=== PATIENT | male | born 1980 | race Caucasian/White ===

== ENCOUNTER 2017-08-02 09:14 | Emergency (ER) | payer OTHER, MEDICAID, SELFPAY ==
[2017-08-02 09:22] VITALS: BP 126/75; PULSE 64; RESP 13; TEMP 36.5; O2SAT 96
--- NOTE | 2017-08-02 09:26 | ED.ALLEREA ---
HPI - Allergic Reaction General Chief complaint: Allergic Reaction Stated complaint: REACTION TO MEDICATION, DIZZY, TIGHTNESS IN CHEST Time Seen by Provider: 08/02/17 09:24 Source: patient Mode of arrival: ambulatory Limitations: no limitations History of Present Illness HPI narrative: Patient presents to the emergency department this morning with a chief complaint of a sudden onset of allergic type symptoms after taking some ibuprofen and phenylephrine for typical cough and cold symptoms. He has had some runny nose and nasal congestion as well as sneezing for the past few days. He was at work and encouraged to take some ibuprofen, he accidentally took 1200 mg, thinking the tablets were 100 mg as opposed to the 200 mg they were. Additionally he took 10 mg of phenylephrine. He has never taken phenylephrine before. He complains of numbness and tingling around his mouth and in his hands. He feels wheezy and lightheaded MD complaint: allergic reaction Onset (ago): minute(s) Exposure: medication Symptoms: difficulty breathing, dizziness and nausea Severity: moderate Treatment prior to arrival: none Previous Allergic Reaction History: none Related Data Home Medications Medication Instructions Recorded Confirmed lorazepam 1 tab PO HSP PRN 08/02/17 08/02/17 methocarbamol 750 mg PO QIDP PRN 08/02/17 08/02/17 Previous Rx's Medication Instructions Recorded valacyclovir 1,000 mg PO Q DAY #5 tab 05/04/17 ibuprofen 800 mg PO TIDP PRN #45 tab 06/21/17 prednisone 20 mg PO DAILY #5 tab 08/02/17 Allergies Allergy/AdvReac Type Severity Reaction Status Date / Time aspirin [ASPIRIN] Allergy Severe Unverified 06/30/17 12:31 Review of Systems Review of Systems All systems reviewed & are unremarkable except as noted in HPI and below Constitutional Denies chills, Denies fever(s), Denies lethargy and Denies weakness Eyes Denies change in vision, Denies eye discharge, Denies irritation and Denies loss of vision ENT Ears, Nose, Mouth, and Throat: Reports nasal congestion, Reports nasal discharge and Reports throat swelling Cardiovascular Denies chest pain, Denies irregular heart rhythm, Denies lightheadedness, Denies palpitations and Denies orthopnea Respiratory Reports wheezing Gastrointestinal Gastrointestinal: Denies abdominal pain, Denies change in bowel habits, Denies diarrhea, Denies nausea and Denies vomiting Musculoskeletal Denies back pain, Denies muscle weakness, Denies numbness and Denies tingling Integumentary/Breasts Denies pruritus, Denies erythema, Denies rash and Denies wounds Neurologic Denies loss of vision, Denies numbness, Denies tingling and Denies weakness Endocrine Denies palpitations Hematologic/Lymphatic Denies easy bruising Allergic/Immunologic Reports throat swelling and Reports wheezing Exam Narrative Exam Narrative: 37-year-old normally healthy male in moderate distress, obviously anxious Const General: cooperative, healthy appearing, well developed, in distress and anxious Nutritional Appearance: well nourished Orientation: alert, awake, oriented x3 and not confused HENKS Head: normocephalic and atraumatic Ears: external ears normal and TM's normal bilaterally Nose: external nose normal and nasal discharge Face and sinus: sinuses nontender, face symmetric, no sinus tenderness and No dry mucous membranes Mouth: oral mucosae normal and moist mucous membranes Teeth and gingiva: dentition normal Throat: tonsils normal and uvula midline Eyes General: appearance normal, both eyes and all related structures Eyelids: eyelids normal Conjunctivae: conjunctivae normal Sclera: sclerae normal Pupils: PERRL EOM: EOM intact bilaterally Neck Neck: normal visual inspection, trachea midline, No lymphadenopathy, No midline deformity and No JVD Lymphatic: No lymphedema Resp Effort & Inspection: able to speak in complete sentences, abnormal respiratory pattern, no respiratory distress and no use of accessory muscles Auscultation: clear to auscultation bilaterally, no rales, no rhonchi and no wheezes Other: Patient is a bit anxious and is breathing rapid and shallow, verbal instructions to slow and even his breathing Cardio Rate: regular rate Rhythm: regular rhythm Heart Sounds: no click, no gallops, no murmurs and no rubs Pulses: normal peripheral pulses GI Inspection: non-distended Palpation: soft, no hepatosplenomegaly, No guarding, No pulsatile mass and No tender Auscultation: normal bowel sounds Back/Spine/Pelvis Back: No CVA tenderness Cervical Spine: cervical ROM normal and No pain with cervical ROM Thoracic/Lumbar Spine: thoracic and lumbar spine normal to inspection Skin General: no rashes or lesions noted, No jaundice and No petechiae Neuro General: alert, oriented x3, gait normal and no focal motor deficits Motor: strength 5/5 throughout Sensory Exam: no sensory deficits noted Extrem General: full ROM, no clubbing, cyanosis or edema, no pedal edema and no calf tenderness Psych Appearance: well kempt Mental Status: mental status grossly normal Attitude: cooperative Thought Content: normal and suicidality Judgment: judgment good MDM - Allergic Reaction Differential Diagnosis Differential diagnosis: Likely anaphylaxis, allergic reaction and adverse reaction to drug Lab Data Attestation: I reviewed the patient's lab results. Result diagrams: 08/02/17 09:43 08/02/17 09:43 Lab Results 08/02/17 08/02/17 Range/Units 09:43 09:43 WBC 7.9 (4.5-11.0) X10^3/uL RBC 4.48 L (4.5-5.9) X10^6/uL Hgb 14.3 (13.5-17.5) g/dL Hct 41.6 (41-53) % MCV 92.9 (80-100) fL MCH 31.9 (26-34) PG MCHC 34.3 (30-36) % RDW 14.2 (11.6-14.8) % Plt Count 188 (150-400) X10^3/uL Neut % (Auto) 56.8 (50-75) % Lymph % (Auto) 26.5 (25-40) % [place] % (Auto) 9.3 (3-14) % Eos % (Auto) 6.6 H (2-4) % Baso % (Auto) 0.8 (0-2) % Neut # (Auto) 4500 (0991-4095) /uL Sodium 139 (137-145) mmol/L Potassium 4.3 (3.4-5.1) mmol/L Chloride 105.0 (98-107) mmol/L Carbon Dioxide 22.0 (22-32) mmol/L BUN 26.0 H (9-20) mg/dL Creatinine 0.70 (0.66-1.25) mg/dL Estimated GFR > 60.0 (>60) mL/min BUN/Creatinine Ratio 37.1 H (6-22) Glucose 124 H (70-100) mg/dL Calcium 9.2 (8.4-10.2) mg/dL Troponin I < 0.012 (0.01-0.034) ng/mL Imaging Data Chest x-ray: Attestation: I personally reviewed and interpreted this imaging study as follows: My impression: NAP Radiologist's impression: PROCEDURE: XR CHEST 1V INDICATIONS: chest pain TECHNIQUE: One view of the chest was acquired. COMPARISON: 01/03/2016 FINDINGS: Surgical changes and devices: None. Lungs and pleura: No pleural effusions or pneumothorax. Lungs are clear. Mediastinum: Mediastinal contours appear normal. Heart size is normal. Bones and chest wall: No suspicious bony lesions. Lower thoracic degenerative disc disease. Overlying soft tissues appear unremarkable. IMPRESSION: No acute cardiopulmonary abnormality Dictated by: Fidencio Mcginnis M.D. on 08/02/2017 at 9:53 ECG Data Attestation: I personally reviewed and interpreted this ECG as follows: Prior ECG tracings: not available for review Interpretation: NSR, rate 71. No ectopy. No ST / T wave abnormalities Course Orders Ordered: ED Orders 08/02/17 09:27 XR chest 1V Stat 08/02/17 09:42 EKG-12 Lead Stat 08/02/17 09:43 Basic Metabolic Panel Urgent Complete Blood Count AUTO DIFF Stat Troponin I Urgent Discontinued Medications Diphenhydramine HCl (Benadryl) 25 mg IV NOW ONE Stop: 08/02/17 09:27 Last Admin: 08/02/17 09:57 Dose: 25 mg Sodium Chloride (Normal Saline 0.9%) 1,000 mls @ 1,000 mls/hr IV BOLUS ONE Stop: 08/02/17 10:25 Last Infusion: 08/02/17 11:52 Dose: 0 mls/hr Admin: 08/02/17 09:57 Dose: 1,000 mls/hr Famotidine (Pepcid) 20 mg in 50 mls @ 200 mls/hr IV NOW ONE Stop: 08/02/17 09:40 Last Infusion: 08/02/17 10:30 Dose: 0 mls/hr Admin: 08/02/17 09:57 Dose: 200 mls/hr Methylprednisolone (Solu-Medrol 125 Mg Vial) 125 mg IV NOW ONE Stop: 08/02/17 09:27 Last Admin: 08/02/17 09:56 Dose: 125 mg Reevaluation(s) Reevaluation #1: Patient feeling much better in now asymptomatic. Requesting discharge Time: 11:59 Last Vital Signs Temp 97.7 F 08/02/17 09:22 Pulse 55 L 08/02/17 11:41 Resp 15 08/02/17 11:41 BP 118/62 08/02/17 11:41 Pulse Ox 95 08/02/17 11:41 Discharge Plan Departure Patient Disposition: Home, Self-Care Clinical Impression: Allergic reaction caused by a drug Instructions: DI for General Allergic Reactions Prescriptions: New prednisone 20 mg tablet 20 mg PO DAILY Qty: 5 RF: 0 No Action valacyclovir 1,000 MG tablet 1,000 mg PO Q DAY Qty: 5 RF: 5 ibuprofen 800 MG tablet 800 mg PO TIDP PRNQty: 45 RF: 0 methocarbamol 750 MG tablet 750 mg PO QIDP PRN (Reason: Muscle Spasm) RF: 0 lorazepam 1 MG tablet 1 tab PO HSP PRN (Reason: Insomnia) RF: 0
[2017-08-02 09:54] LABS: Add Manual Diff / Slide Review NO; Basophils Percent Auto 0.8 % (0-2); Eosinophils Percent Auto 6.6 % (2-4); Hematocrit 41.6 % (41-53); Hemoglobin 14.3 g/dL (13.5-17.5); Lymphocytes Percent Auto 26.5 % (25-40); Mean Corpuscular HGB Conc 34.3 % (30-36); Mean Corpuscular Hemoglobin 31.9 PG (26-34); Mean Corpuscular Volume 92.9 fL (80-100); Monocytes Percent Auto 9.3 % (3-14); Neutrophils Absolute Auto 4500 /uL (3000-5900); Neutrophils Percent Auto 56.8 % (50-75); Platelet Count 188 X10^3/uL (150-400); Red Blood Cell Count 4.48 X10^6/uL (4.5-5.9); Red Cell Distribution Width 14.2 % (11.6-14.8); White Blood Cell Count 7.9 X10^3/uL (4.5-11.0)
[2017-08-02] MEDS: methylPREDNISolone 125 MG/2 ML VIAL IV (09:56)
[2017-08-02] MEDS: FAMOTIDINE 20 MG/50 ML PIGGYBACK 200 MG IV (09:57)
[2017-08-02] MEDS: SODIUM CHLORIDE 0.9% 1,000 ML 1000 ML IV (09:57)
[2017-08-02] MEDS: diphenhydrAMINE 50 MG/ML VIAL 25 MG IV (09:57)
[2017-08-02 10:07] LABS: BUN Creatinine Ratio 37.1 (6-22); Calcium 9.2 mg/dL (8.4-10.2); Estimated Glomerular Filt Rate > 60.0 mL/min (>60); Glucose 124 mg/dL (70-100); HEMOLYSIS 50 (0-50); Potassium 4.3 mmol/L (3.4-5.1); Sodium 139 mmol/L (137-145)
[2017-08-02 10:19] LABS: Troponin I < 0.012 ng/mL (0.01-0.034)
[2017-08-02 11:41] VITALS: BP 118/62; PULSE 55; RESP 15; O2SAT 95
[2017-08-02 12:40] VITALS: BP 130/68; PULSE 88; O2SAT 100
== END 2017-08-02 13:03 | disposition home or self-care (01) ==
PROVIDERS: Emergency Provider Emergency Medicine; Family Provider Family Medicine; PCP Family Medicine
DX: T78.40XA Allergy, unspecified, initial encounter (principal)
CPT/HCPCS: 36591; 71045; 80048; 84484; 85025; 93005; 96361; 96374; 96375; 99283; 99285; J1200; J2930

== ENCOUNTER 2017-09-12 12:03 | Emergency (ER) | payer OTHER, MEDICAID, SELFPAY ==
[2017-09-12 12:21] VITALS: BP 118/76; PULSE 88; RESP 18; TEMP 36.4; O2SAT 97; BMI 32.8
[2017-09-12 14:36] VITALS: BP 115/66; PULSE 61; RESP 16; TEMP 36.7; O2SAT 99
--- NOTE | 2017-09-12 14:42 | ED_ITS ---
HPI - Back Pain/Injury <Briana El PA-C - Last Filed: 09/12/17 21:52> General Chief Complaint: Back Pain/Injury Stated Complaint: SEVERE LOWER BACK PAIN Time Seen by Provider: 09/12/17 13:59 Source: patient Mode of arrival: ambulatory Limitations: no limitations History of Present Illness HPI Narrative: This 37-year-old male who has a history of chronic back pain intermittently and spinal stenosis with sciatica comes in due to 4 day history of left-sided low back pain. 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 He states he did clean out a kiddie pool prior to onset of symptoms but does not remember any injury. He also states that he took a performance enhancing herbal supplement packet just prior to onset of symptoms. He states that he is starting to notice a little bit of pain radiating into the leg, but he denies any lower extremity weakness or paresthesia. He denies any bowel or bladder changes. He denies any fever, rash. He is on 800 mg of ibuprofen regularly which he ran out of 6 days ago, and also ran out of his Robaxin yesterday. He states that usually the 2 agents together help but the Robaxin alone did not seem to help him much last night. Related Data Previous Rx's Medication Instructions Recorded prednisone 20 mg PO DAILY #5 tab 08/02/17 valacyclovir 1 gram tablet 1,000 mg PO Q DAY #5 tab 08/02/17 lorazepam 1 mg tablet 1 mg PO HSP PRN #30 tab 08/05/17 methocarbamol 750 mg tablet 750 mg PO QIDP PRN #80 tab 08/05/17 meloxicam [Mobic] 15 mg PO DAILY #7 tab 09/12/17 methocarbamol [Robaxin-] 750 mg PO TID PRN #10 tab 09/12/17 Allergies Allergy/AdvReac Type Severity Reaction Status Date / Time aspirin [ASPIRIN] Allergy Severe Unverified 06/30/17 12:31 Exam <Briana El PA-C - Last Filed: 09/12/17 21:52> Narrative Exam Narrative: GENERAL APPEARANCE: Patient sleeping flat on his back, in no distress PULMONARY: Lungs clear to auscultation bilaterally CV: Regular rhythm regular without murmur, normal S1 and S2, no S3 or S4 MUSCULOSKELETAL: No point tenderness over the lumbar spine. No point tenderness over the SI joints. No tenderness over the thoracolumbar musculature or flanks. Lower extremity strength 5/5 bilateral hip flexors, knee extensors, foot plantar flexion. Negative modified straight leg raise. He has normal trunk extension, reduced flexion to about 30? secondary to tenderness, and moderately reduced rotation secondary to tenderness, normal lateral bend NEUROLOGIC: Bilateral patellar and Achilles DTRs 2+ with distraction DERMATOLOGIC: No exanthem Initial Vital Signs Initial Vital Signs: Vital Signs Temperature 97.5 F L 09/12/17 12:21 Pulse Rate 88 09/12/17 12:21 Respiratory Rate 18 09/12/17 12:21 Blood Pressure 118/76 09/12/17 12:21 Pulse Oximetry 97 09/12/17 12:21 <Pillo Pérez DO - Last Filed: 09/14/17 07:17> Initial Vital Signs Initial Vital Signs: Vital Signs Temperature 97.5 F L 09/12/17 12:21 Pulse Rate 88 09/12/17 12:21 Respiratory Rate 18 09/12/17 12:21 Blood Pressure 118/76 09/12/17 12:21 Pulse Oximetry 97 09/12/17 12:21 Course <TERE Gomes Last Filed: 09/12/17 21:52> Vital Signs - 8 hr 09/12/17 14:36 Temperature 98.0 F Pulse Rate 61 Respiratory Rate 16 Blood Pressure [Left Arm] 115/66 Pulse Oximetry 99 <DO Ammy Ocasio Last Filed: 09/14/17 07:17> Vital Signs - 8 hr 09/12/17 14:36 Temperature 98.0 F Pulse Rate 61 Respiratory Rate 16 Blood Pressure [Left Arm] 115/66 Pulse Oximetry 99 MDM - Back Pain/Injury <TERE Gomes Last Filed: 09/12/17 21:52> Lab Data Attestation: I reviewed the patient's lab results. Urinalysis 1+ urobilinogen, otherwise WNL Discharge Plan Departure Patient Disposition: Home, Self-Care Clinical Impression: Lumbar strain, Muscle spasm Discharge Date/Time: 09/12/17 14:58 Interventions: ED Discharge Assessment Last Done: 09/12/17 14:57 Instructions: Managing Chronic Low Back Pain, DI for Low Back Pain Activity Restrictions/Additional Instructions: Stop taking your ibuprofen and try the new anti-inflammatory meloxicam once daily that I sent a prescription in for. Restart your methocarbamol. Call your PCP in the morning to schedule follow-up. I think you have strained your lumbar area and have spasms on top of your previous back pain and sciatica. 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 You should see your PCP in the next day or 2 before returning to work to determine your level of improvement or whether you need any work modifications. Prescriptions: New meloxicam [Mobic] 15 mg tablet 15 mg PO DAILY Qty: 7 RF: 0 methocarbamol [Robaxin-750] 750 mg tablet 750 mg PO TID PRN (Reason: muscle spasm) Qty: 10 RF: 0 Discontinued ibuprofen 800 mg tablet 800 mg PO TIDP PRN (Reason: pain) Qty: 45 RF: 3 No Action valacyclovir 1 gram tablet 1,000 mg PO Q DAY Qty: 5 RF: 5 methocarbamol 750 mg tablet 750 mg PO QIDP PRN (Reason: Muscle Spasm) Qty: 80 RF: 3 lorazepam 1 mg tablet 1 mg PO HSP PRN (Reason: Insomnia) Qty: 30 RF: 0 prednisone 20 mg tablet 20 mg PO DAILY Qty: 5 RF: 0 <Pillo Pérez DO - Last Filed: 09/14/17 07:17> Fannie ED Attending Felipa Attestation: I was available for consultation during this patient's emergency department encounter
== END 2017-09-12 14:58 | disposition home or self-care (01) ==
PROVIDERS: Emergency Provider Internal Medicine; Family Provider Family Medicine; PCP Family Medicine
DX: S39.012A Strain of muscle, fascia and tendon of lower back, initial encounter (principal); T73.3XXA Exhaustion due to excessive exertion, initial encounter
CPT/HCPCS: 81003; 99282

== ENCOUNTER 2018-02-04 13:25 | Emergency (ER) | payer OTHER, MEDICAID, SELFPAY ==
[2018-02-04 13:35] VITALS: BP 113/74; PULSE 83; RESP 18; TEMP 36.8; O2SAT 97; BMI 34.2
--- NOTE | 2018-02-04 13:41 | DI.RAD.S_ITS ---
PROCEDURE: XR CHEST 2V INDICATIONS: Increasing Sob, cough TECHNIQUE: 2 views of the chest were acquired. COMPARISON: [facility], , XR CHEST 1V, 08/02/2017, 9:32. [facility], , CHEST 2 VIEW, 01/03/2016, 12:31. FINDINGS: Surgical changes and devices: None. Lungs and pleura: No pleural effusions or pneumothorax. Lungs are clear. Mediastinum: Mediastinal contours are normal. Heart size is normal. Bones and chest wall: No suspicious bony abnormalities. Soft tissues appear unremarkable. IMPRESSION: Normal for age, source of current symptoms is not seen. Dictated by: Cortes Dacosta M.D. on 02/04/2018 at 14:05 Approved by: Cortes Dacosta M.D. on 02/04/2018 at 14:05
--- NOTE | 2018-02-04 14:13 | ED.URI ---
HPI - URI/Sore Throat <LIEN Edwards - Last Filed: 02/04/18 22:08> General Chief Complaint: Upper Respiratory Symptoms Stated Complaint: pneumonia Time Seen by Provider: 02/04/18 14:13 Source: patient Mode of arrival: ambulatory Limitations: no limitations History of Present Illness HPI Narrative: 38-year-old male with history of chronic upper back pain and is an everyday smoker here for complaint of having a productive cough and nasal congestion over the last 3 days. He reports having a anterior chest wall pain and also pain into his shoulder area with cough. He denies any fevers. Positive p.o. intake. No chills. He denies any other concerns or complaints at this time. No shortness of breath MD Complaint: cough and nasal congestion Related Data Home Medications Medication Instructions Recorded Confirmed lorazepam 1 mg PO BEDTIME 02/04/18 02/04/18 methocarbamol 750 mg PO TID PRN 02/04/18 02/04/18 Previous Rx's Medication Instructions Recorded meloxicam [Mobic] 15 mg PO DAILY #7 tab 09/12/17 ibuprofen 800 mg tablet 800 mg PO TID PRN #45 tab 11/10/17 acyclovir 400 mg tablet 400 mg PO BID #60 tab 11/30/17 albuterol sulfate 2 puff INHALATION Q4-6H PRN #6.7 02/04/18 gram benzonatate 200 mg PO TID PRN #15 cap 02/04/18 Allergies Allergy/AdvReac Type Severity Reaction Status Date / Time aspirin [ASPIRIN] Allergy Severe Anaphylaxis Verified 02/04/18 13:40 Review of Systems <LIEN Edwards - Last Filed: 02/04/18 22:08> Constitutional Denies chills, Denies fever(s), Denies lethargy and Denies weakness Eyes Denies change in vision, Denies eye discharge, Denies irritation and Denies loss of vision ENT Ears, Nose, Mouth, and Throat: Reports nasal congestion and Denies throat swelling Cardiovascular Denies chest pain, Denies irregular heart rhythm, Denies lightheadedness, Denies palpitations and Denies orthopnea Respiratory Reports cough, Reports pain with cough and Denies wheezing Gastrointestinal Gastrointestinal: Denies abdominal pain, Denies change in bowel habits, Denies diarrhea, Denies nausea and Denies vomiting Genitourinary Denies hematuria, Denies flank pain, Denies urinary incontinence and Denies urinary urgency Musculoskeletal Denies back pain, Denies muscle weakness, Denies numbness and Denies tingling Integumentary/Breasts Denies pruritus, Denies erythema, Denies rash and Denies wounds Neurologic Denies confusion, Denies loss of vision, Denies numbness, Denies tingling and Denies weakness Psychiatric Denies anxiety, Denies confusion, Denies depression, Denies homicidal ideation and Denies suicidal ideation Endocrine Denies palpitations Hematologic/Lymphatic Denies easy bruising Allergic/Immunologic Denies urticaria, Denies throat swelling and Denies wheezing Exam <LIEN Edwards - Last Filed: 02/04/18 22:08> Initial Vital Signs Initial Vital Signs: Vital Signs Temperature 98.2 F 02/04/18 13:35 Pulse Rate 83 02/04/18 13:35 Respiratory Rate 18 02/04/18 13:35 Blood Pressure 113/74 02/04/18 13:35 Pulse Oximetry 97 02/04/18 13:35 Const General: cooperative and well developed Nutritional Appearance: well nourished Orientation: alert, awake, oriented x3 and not confused HENVT Mouth: oral mucosae normal and mucous membranes abnormal Eyes Conjunctivae: conjunctivae normal Sclera: sclerae normal Pupils: PERRL EOM: EOM intact bilaterally Resp Effort & Inspection: normal respiratory effort, able to speak in complete sentences, no respiratory distress and no use of accessory muscles Auscultation: clear to auscultation bilaterally, no rales, no rhonchi and wheezes inspiratory wheezes Cardio Rate: regular rate Rhythm: regular rhythm Heart Sounds: no click, no gallops, no murmurs and no rubs Skin General: no rashes or lesions noted, No jaundice and No petechiae Neuro General: alert, oriented x3, gait normal and no focal motor deficits Speech: speech normal <Briseida Cortez DO - Last Filed: 02/05/18 07:35> Initial Vital Signs Initial Vital Signs: Vital Signs Temperature 98.2 F 02/04/18 13:35 Pulse Rate 83 02/04/18 13:35 Respiratory Rate 18 02/04/18 13:35 Blood Pressure 113/74 02/04/18 13:35 Pulse Oximetry 97 02/04/18 13:35 Course <LIEN Edwards - Last Filed: 02/04/18 22:08> Orders Ordered: ED Orders 02/04/18 13:41 Chest [XR chest 2V] Stat Vital Signs - 8 hr 02/04/18 13:35 Temperature 98.2 F Pulse Rate 83 Respiratory Rate 18 Blood Pressure 113/74 Pulse Oximetry 97 <Briseida Cortez DO - Last Filed: 02/05/18 07:35> Orders Ordered: ED Orders 02/04/18 13:41 Chest [XR chest 2V] Stat Vital Signs - 8 hr 02/04/18 13:35 Temperature 98.2 F Pulse Rate 83 Respiratory Rate 18 Blood Pressure 113/74 Pulse Oximetry 97 MDM - URI/Sore Throat <LIEN Edwards - Last Filed: 02/04/18 22:08> Imaging Data Chest x-ray: Radiologist's impression: [address] [address] XRay Report Signed Patient: Santiago Fernandez RMR#: [id number] : 1980Acct:[id number] Age/Sex: 38 / MDate of Service: 02/04/18 Loc: ED Accession Number: [id number] Procedure: XR chest 2V Ordering Provider: Briseida Cortez D.O. PROCEDURE: XR CHEST 2V INDICATIONS: Increasing Sob, cough TECHNIQUE: 2 views of the chest were acquired. COMPARISON: [facility], , XR CHEST 1V, 08/02/2017, 9:32. [facility], , CHEST 2 VIEW, 01/03/2016, 12:31. FINDINGS: Surgical changes and devices: None. Lungs and pleura: No pleural effusions or pneumothorax. Lungs are clear. Mediastinum: Mediastinal contours are normal. Heart size is normal. Bones and chest wall: No suspicious bony abnormalities. Soft tissues appear unremarkable. IMPRESSION: Normal for age, source of current symptoms is not seen. Dictated by: Cortes Dacosta M.D. on 02/04/2018 at 14:05 Approved by: Cortes Dacosta M.D. on 02/04/2018 at 14:05 [facility] Narrative Medical decision making narrative: Chest x-ray was obtained was negative for any acute findings. Signs symptoms presents as viral infection. Slight wheezes heard on auscultation will prescribe albuterol inhaler to help with airway irritation either from viral infection or smoking or both. Tessalon Perles is prescribed to help with cough. Plenty of fluids and rest. [id number] Tylenol or Motrin as needed for any discomfort. Hot showers and saline irrigation and nasal passages to help with congestion. Follow up with primary care provider in the next few days for re-evaluation. If any worsening symptoms return to the emergency room. Discharge Plan Departure Patient Disposition: Home Clinical Impression: Upper respiratory infection, viral Discharge Date/Time: 02/04/18 14:56 Interventions: ED Discharge Assessment Last Done: 02/04/18 14:55 Instructions: DI for Viral Upper Respiratory Infection -- Adult Activity Restrictions/Additional Instructions: Chest x-ray was obtained today was negative for signs of pneumonia. Signs and symptoms presents as a viral upper respiratory infection. Slight wheezes was heard on auscultation of the lungs this is most likely due to irritation from the virus or from smoking. You are prescribed a albuterol inhaler to help with irritation to the airways use as directed. Tessalon Perles as prescribed to help with cough also use as directed. Plenty of rest and fluids. Hot showers and saline irrigation and nasal passages to help with congestion. Follow up with her primary care provider in the next few days for re-evaluation. For any worsening symptoms return to the emergency room Prescriptions: New benzonatate 200 mg capsule 200 mg PO TID PRN (Reason: cough) Qty: 15 RF: 0 albuterol sulfate 90 mcg/actuation HFA aerosol inhaler 2 puff INHALATION Q4-6H PRN (Reason: shortness of breath or wheezing) Qty: 6.7 RF: 0 No Action acyclovir 400 mg tablet 400 mg PO BID Qty: 60 RF: 11 ibuprofen 800 mg tablet 800 mg PO TID PRN (Reason: pain) Qty: 45 RF: 0 meloxicam [Mobic] 15 mg tablet 15 mg PO DAILY Qty: 7 RF: 0 methocarbamol 750 mg tablet 750 mg PO TID PRN (Reason: Spasms) RF: 0 lorazepam 1 mg tablet 1 mg PO BEDTIME RF: 0 Referrals: Larry Vivar MD [Primary Care Provider] - Stand Alone Forms: Work/School Restrictions <Briseida Cortez DO - Last Filed: 02/05/18 07:35> Cosign ED Attending Cosignature Attestation: I was immediately available in the department for consultation. Documentation has been reviewed. I agree with assessment and plan.
--- NOTE | 2018-02-05 18:25 | PC.NURSE ---
Patient Call Back: patient reports not feeling any better really... I have increased pressure in my sternum and I'm still congested. States he is taking his albuterol and tessalon pearls. Reminded the patient that he can return to the ED to be seen if needed. Patient states not in particular when asked if he had any questions about his discharge or anything we could do to improve his visit.
== END 2018-02-04 14:56 | disposition home or self-care (01) ==
PROVIDERS: Emergency Provider Nurse Practitioner Family; PCP Family Medicine
DX: J06.9 Acute upper respiratory infection, unspecified (principal)
CPT/HCPCS: 71046; 99282; 99283

== ENCOUNTER 2018-04-15 07:33 | Emergency (ER) | payer OTHER, MEDICAID, SELFPAY ==
[2018-04-15 07:45] VITALS: BP 126/80; PULSE 94; RESP 18; TEMP 35.8; O2SAT 96; BMI 36.0
--- NOTE | 2018-04-15 07:45 | ED.BACK ---
HPI - Back Pain/Injury General Chief Complaint: Back Pain/Injury Stated Complaint: back pain Time Seen by Provider: 04/15/18 07:39 Source: patient Mode of arrival: ambulatory Limitations: no limitations History of Present Illness HPI Narrative: 38-year-old male here for evaluation of lower back pain. Patient states that he has had a history of lower back pain. He is currently on Robaxin and Motrin. He has seen his primary care doctor. Was initially scheduled to have an MRI completed however due to insurance issues this has not yet been completed. He states that today he was at work. 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 No fevers. No bowel or bladder symptoms. He did take a Motrin this morning without any relief. Related Data Home Medications Medication Instructions Recorded Confirmed lorazepam 1 mg PO BEDTIME 02/04/18 02/04/18 methocarbamol 750 mg PO TID PRN 02/04/18 02/04/18 Previous Rx's Medication Instructions Recorded meloxicam [Mobic] 15 mg PO DAILY #7 tab 09/12/17 ibuprofen 800 mg tablet 800 mg PO TID PRN #45 tab 11/10/17 acyclovir 400 mg tablet 400 mg PO BID #60 tab 11/30/17 albuterol sulfate 2 puff INHALATION Q4-6H PRN #6.7 02/04/18 gram benzonatate 200 mg PO TID PRN #15 cap 02/04/18 prednisone 40 mg PO DAILY #10 tab 04/15/18 tramadol [Ultram] 50 mg PO Q6H PRN #10 tab 04/15/18 Allergies Allergy/AdvReac Type Severity Reaction Status Date / Time aspirin [ASPIRIN] Allergy Severe Anaphylaxis Verified 02/04/18 13:40 Review of Systems Constitutional Denies fever(s) Cardiovascular Denies chest pain and Denies dyspnea Respiratory Denies dyspnea Gastrointestinal Gastrointestinal: Denies abdominal pain and Denies change in bowel habits Genitourinary Denies urinary hesitancy and Denies urinary incontinence Musculoskeletal Reports back pain and Denies myalgias Integumentary/Breasts Denies rash Neurologic Comments: Some radiation down to his right lower extremity Hematologic/Lymphatic Comments: Not on anticoagulation PFSH Social History Smoking Status: Current every day smoker Exam Initial Vital Signs Initial Vital Signs: Vital Signs Temperature 96.4 F L 04/15/18 07:45 Pulse Rate 94 H 04/15/18 07:45 Respiratory Rate 18 04/15/18 07:45 Blood Pressure 126/80 04/15/18 07:45 Pulse Oximetry 96 04/15/18 07:45 Const General: cooperative, well developed, well groomed and No acute distress Orientation: alert and oriented x3 HENMT Head: normal to inspection and normocephalic Resp Effort & Inspection: normal respiratory effort Cardio Rate: regular rate Skin Rashes: no rashes Neuro General: alert, awake and oriented x3 Extrem General: No edema Psych Appearance: grossly normal and well kempt Course Orders Ordered: Discontinued Medications Ketorolac Tromethamine (Toradol) 30 mg IM NOW ONE Stop: 04/15/18 08:06 Vital Signs - 8 hr 04/15/18 07:45 Temperature 96.4 F L Pulse Rate 94 H Respiratory Rate 18 Blood Pressure 126/80 Pulse Oximetry 96 MDM - Back Pain/Injury MDM Narrative Medical decision making narrative: Patient has no red flag symptoms concerning for fracture or cauda equina. No history of cancer so I have low concern for metastasis. Patient without any instrumentation to his back so also have low concern for spinal epidural abscess or hematoma. I do suspect musculoskeletal back pain. He has ibuprofen at home. He has Robaxin at home. He was given a shot of Toradol here in the emergency department. Will send home with a short course of steroids and also a short course of pain medication. Informed him that he needed to stay as active as possible. Informed him that he needed to contact his primary care doctor for a follow-up and to discuss the MRI your referral to see a cardiology clinical nurse specialist. He was given return precautions. He expressed understanding and agreement with plan. Discharge Plan Departure Patient Disposition: Home Clinical Impression: Lumbago Instructions: Back Pain (Alternative Therapy), Activity May Be Better then Rest for Low Back Pain Recovery, DI for Thoracic Back Pain, Exercise May Reduce Risk of Low Back Pain Activity Restrictions/Additional Instructions: Recommend that you continue with the Motrin on a daily basis. You can take 800 mg 3 times a day with food. You were given a Toradol shot here in the emergency department so I would not take Motrin today but you can start it tomorrow. You can return to work tomorrow. I do recommend you stay as active as possible. Contact your primary care doctor to discuss further workup. Prescriptions: New prednisone 20 mg tablet 40 mg PO DAILY Qty: 10 RF: 0 tramadol [Ultram] 50 mg tablet 50 mg PO Q6H PRN (Reason: pain) Qty: 10 RF: 0 No Action acyclovir 400 mg tablet 400 mg PO BID Qty: 60 RF: 11 ibuprofen 800 mg tablet 800 mg PO TID PRN (Reason: pain) Qty: 45 RF: 0 meloxicam [Mobic] 15 mg tablet 15 mg PO DAILY Qty: 7 RF: 0 methocarbamol 750 mg tablet 750 mg PO TID PRN (Reason: Spasms) RF: 0 lorazepam 1 mg tablet 1 mg PO BEDTIME RF: 0 benzonatate 200 mg capsule 200 mg PO TID PRN (Reason: cough) Qty: 15 RF: 0 albuterol sulfate 90 mcg/actuation HFA aerosol inhaler 2 puff INHALATION Q4-6H PRN (Reason: shortness of breath or wheezing) Qty: 6.7 RF: 0 Stand Alone Forms: Work Release Note
[2018-04-15] MEDS: KETOROLAC 60 MG/2 ML VIAL 30 MG IM (08:19)
[2018-04-15 08:58] VITALS: BP 131/78; PULSE 69; RESP 19; O2SAT 99
== END 2018-04-15 08:56 | disposition home or self-care (01) ==
PROVIDERS: Emergency Provider Emergency Medicine; PCP Family Medicine
DX: M54.2 Cervicalgia (principal)
CPT/HCPCS: 96372; 99282; 99283; J1885